=== PATIENT | male | born 1945 | race Two or more races ===

== ENCOUNTER 2025-02-12 14:07 | Emergency (ER) | payer OTHER ==
[~2025-02-12] VITALS: Ht 162.6 cm; Wt 61.2 kg
[2025-02-12] MEDS ORDERED: TETANUS & DIPHTHERIA TOX,ADULT 0.5 ML VIAL IM ONE (16:00)
[2025-02-12] MEDS ORDERED: CEFTRIAXONE SODIUM 1,000 MG VIAL IM ONE (16:00)
[2025-02-12] MEDS ORDERED: PEPCID AC20 MG PO (16:07)
[2025-02-12] MEDS ORDERED: CEFUROXIME500 MG PO (16:07)
[2025-02-12] MEDS ORDERED: CEFTRIAXONE SODIUM 1,000 MG VIAL ONE (16:37)
[2025-02-12] MEDS ORDERED: DIPHTH,PERTUSS(ACELL),TET VAC 0.5 ML SYRINGE IM ONE ×2 (16:37→17:15)
[2025-02-12] MEDS ORDERED: LIDOCAINE HCL 1% 10ML VIAL ONE (16:37)
[2025-02-12 17:16] VITALS: BP 103/64; O2SAT 98
== END 2025-02-12 17:17 | disposition home or self-care (01) ==
LOC: ER 14:07
DX: S61.451A Open bite of right hand, initial encounter (principal); W59.81XA Bitten by other nonvenomous reptiles, initial encounter; Y93.89 Activity, other specified; Y92.832 Beach as the place of occurrence of the external cause; Y99.8 Other external cause status
CPT/HCPCS: 12001; 90471; 90714; 96372; 99282; J0696; J1670